=== PATIENT | male | born 1975 | race Caucasian/White ===

== ENCOUNTER 2020-06-11 18:39 | Emergency (ER) | payer BC ==
[2020-06-11] MEDS ORDERED: Acetaminophen/HYDROcodone 325-5 MG Tab PO ONE (18:52)
[2020-06-11] MEDS ORDERED: Acetaminophen/HYDROcodone 325-5 MG Tab ONE ×2 (19:00→19:06)
--- NOTE | 2020-06-11 19:02 | EDM.PDOC ---
ED HPI GENERAL MEDICAL PROBLEM - General Chief Complaint: Upper Extremity Injury/Pain Stated Complaint: left arm injury Time Seen by Provider: 06/11/20 18:40 Source of Information: Reports: Patient History Limitations: Reports: No Limitations - History of Present Illness INITIAL COMMENTS - FREE TEXT/NARRATIVE: patient shoveled snow yesterday, last night developed left elbow pain denies any injury. Increased to day with w\swelling. Pain with ROM. CMS +, shoulder unremarkable. No signs of infection, but swelling is present. - Related Data Allergies Allergy/AdvReac Type Severity Reaction Status Date / Time Penicillins Allergy Hives Verified 06/11/20 18:45 Social & Family History - Recreational Drug Use Recreational Drug Use: No Review of Systems - Review of Systems Review Of Systems: See Below Constitutional: Reports: No Symptoms Eyes: Reports: No Symptoms Ears: Reports: No Symptoms Nose: Reports: No Symptoms Mouth/Throat: Reports: No Symptoms Respiratory: Reports: No Symptoms Cardiovascular: Reports: No Symptoms GI/Abdominal: Reports: No Symptoms Genitourinary: Reports: No Symptoms Musculoskeletal: Reports: Arm Pain, Joint Swelling Skin: Denies: Erythema, Wound Neurological: Reports: No Symptoms Psychiatric: Reports: No Symptoms ED EXAM, GENERAL - Physical Exam Exam: See Below Exam Limited By: No Limitations General Appearance: Alert, Mild Distress Throat/Mouth: Normal Voice Head: Atraumatic Neck: Full Range of Motion Respiratory/Chest: No Respiratory Distress Cardiovascular: Normal Peripheral Pulses, Regular Rate, Rhythm, No JVD Peripheral Pulses: 3+: Radial (L), Radial (R) (Male) Exam: Deferred Rectal (Males) Exam: Deferred Back Exam: Full Range of Motion Extremities: Normal Inspection, Normal Capillary Refill, Joint Swelling, Arm Pain, Limited Range of Motion (left elbow) Neurological: Alert, Oriented, Normal Gait, No Motor/Sensory Deficits, Abnormal Reflexes Psychiatric: Normal Mood Skin Exam: Warm, Dry, Intact, Normal Color Lymphatic: No Adenopathy Course - Vital Signs Last Recorded V/S: Last Vital Signs Temp 98.7 F 06/11/20 18:50 Pulse 97 06/11/20 18:50 Resp 18 06/11/20 18:50 BP 153/89 H 06/11/20 18:50 Pulse Ox 97 06/11/20 18:50 Departure - Departure Time of Disposition: 19:13 Disposition: Home, Self-Care 01 Condition: Good Clinical Impression: Bursitis due to overuse - Discharge Information *PRESCRIPTION DRUG MONITORING PROGRAM REVIEWED*: Not Applicable *COPY OF PRESCRIPTION DRUG MONITORING REPORT IN PATIENT SHY: Not Applicable Instructions: Preventing Overuse Injuries, Adult Additional Instructions: Return to ED for any increased or new concerning symptoms. Ice 15-20 minutes every 3-4 hours i\until tomorrow night, then you may use heat as discussed. Ibuprofen 600 mg every 6 hours with food, [place] 1 tablet every 6 hours for severe pain. Gentle exercises. Follow up with your primary MD next week or sooner if needed. You may use the troy and sling as needed. Watch for signs of infection, low grade fever, redness, drainage. Sepsis Event Note (ED) - Evaluation Sepsis Screening Result: No Definite Risk - Focused Exam Vital Signs: Vital Signs Temp Pulse Resp BP Pulse Ox 06/11/20 18:50 98.7 F 97 18 153/89 H 97 06/11/20 18:48 98.2 F 99 18 153/89 H 98
[2020-06-11] MEDS ORDERED: Ibuprofen 600 MG Tab PO ONE (19:05)
[2020-06-11] MEDS ORDERED: Ibuprofen 600 MG Tab ONE (19:16)
== END 2020-06-11 19:18 | disposition home or self-care (01) ==
LOC: LB.ED 18:39
DX: M70.88 Other soft tissue disorders related to use, overuse and pressure other site (principal); Z88.0 Allergy status to penicillin
CPT/HCPCS: 99283; A9270

== ENCOUNTER 2020-07-21 20:28 | Emergency (ER) | payer BC ==
[2020-07-21] MEDS: HYDROmorphone 2 MG/ML SDV IVPUSH ONE (20:55)
[2020-07-21] MEDS: Ondansetron 4 MG/2 ML SDV IVPUSH ONE (20:56)
--- NOTE | 2020-07-22 00:17 | ER ---
HISTORY OF PRESENT ILLNESS: 44-year-old male here with complaints of ongoing issues with left elbow pain. He was seen a couple of months ago at this facility and was diagnosed with bursitis. He was given a sling and Voltaren to use. He states he used the Voltaren for a little while, the sling he did not use much. He has been continuing to work and the pain seems to be ongoing and getting a little worse. He is pointing to roughly the olecranon process area when describing area of discomfort. OBJECTIVE: GENERAL APPEARANCE: The patient is awake and alert. No obvious distress. MUSCULOSKELETAL: Examining the left elbow reveals skin is intact. There is no obvious swelling involving the olecranon process. Palpation reveals mild to moderate discomfort on the medial side of the elbow. The patient can flex and extend the elbow, but he cannot fully extend the elbow, telling me that this is fairly new. LAB AND X-RAY: X-rays were obtained of the elbow. It looks like there is an avulsion fracture on the medial side of the elbow. I do not see any other acute bony abnormalities. DIAGNOSIS: Elbow pain with a possible avulsion injury. TREATMENT PLAN: The patient is to resume using his sling. He is not to do any activity that he cannot do with a sling in place. He is to use ibuprofen alternating with Tylenol during the day and apply ice frequently for a couple of days. I do want the patient to recheck either late this week or early next week in the clinic for further evaluation which may include further imaging or an orthopedic referral may be needed. The patient has no further questions and agrees with the treatment plan. SALMA/FRANTZ /[id number]
--- NOTE | 2020-07-22 08:32 | CR ---
Date of Service: 07/21/20 Clinical Data: left elbow pain for 2 months. LEFT ELBOW: There is soft tissue ossification adjacent to the medial epicondyle of the distal humerus which may be related to prior trauma or repetitive stress. No acute fracture or dislocation. No lytic or blastic bone lesions. There does appear to be a subtle anterior fat pad sign consistent with small joint effusion. No other significant findings. [id number] [facility]
== END 2020-07-21 21:17 | disposition home or self-care (01) ==
LOC: LB.ED 20:28
DX: M25.522 Pain in left elbow (principal)
CPT/HCPCS: 73070-LT; 96374; 96375; 99283-25; J1170; J2405

== ENCOUNTER 2020-12-13 12:43 | Emergency (ER) | payer BC ==
--- NOTE | 2020-12-13 13:13 | EDM.PDOC ---
ED HPI GENERAL MEDICAL PROBLEM - General Chief Complaint: Lower Extremity Injury/Pain Stated Complaint: LEFT KNEE PAIN Time Seen by Provider: 12/13/20 13:15 Source of Information: Reports: Patient History Limitations: Reports: No Limitations - History of Present Illness INITIAL COMMENTS - FREE TEXT/NARRATIVE: patient presented to the ER with a c/o left knee pain started yesterday morning and has been gradually getting worse. No trauma or injury. Reports a h/o of ACL repair 2 years ago - since then, her has been doing well. Reports pain is 6 out of 10 while resting and jumps to 10 when he moves it. Unable to ambulate due to pain.. Has been using Aleve without relief of pain. Reports a h/o gout - used to be on allopurinol for 6 years- stopped taking it 2 yrs ago. Onset: Sudden Duration: Day(s): (2) Location: Reports: Lower Extremity, Left Quality: Reports: Sharp, Throbbing Severity: Severe Improves with: Reports: None Worsens with: Reports: Movement knee Pain Score (Numeric/FACES): 6 - Related Data Allergies Allergy/AdvReac Type Severity Reaction Status Date / Time Penicillins Allergy Hives Verified 12/13/20 12:54 Home Meds: Home Meds Escitalopram Oxalate [Lexapro] 10 mg PO DAILY 07/21/20 [History] Glimepiride 4 mg PO BIDMEALS 07/21/20 [History] Metoprolol Succinate 100 mg PO DAILY 07/21/20 [History] [place]-3/DHA/Epa/Fish Oil [Fish Oil 1,000 mg Softgel] 3 each PO DAILY 07/21/20 [History] Pioglitazone [Actos] 30 mg PO DAILY 07/21/20 [History] atorvaSTATin [Lipitor] 20 mg PO DAILY 07/21/20 [History] hydroCHLOROthiazide [Hydrochlorothiazide] 50 mg PO DAILY 07/21/20 [History] metFORMIN [Glucophage] 1,000 mg PO BIDMEALS 07/21/20 [History] Past Medical History Cardiovascular History: Reports: High Cholesterol, Hypertension Musculoskeletal History: Reports: Gout Endocrine/Metabolic History: Reports: Diabetes, Type II Social & Family History - Caffeine Use Caffeine Use: Reports: Soda Review of Systems - Review of Systems Review Of Systems: See Below Constitutional: Reports: No Symptoms Eyes: Reports: No Symptoms Respiratory: Reports: No Symptoms Cardiovascular: Reports: No Symptoms GI/Abdominal: Reports: No Symptoms Genitourinary: Reports: No Symptoms Skin: Reports: No Symptoms Neurological: Reports: No Symptoms ED EXAM, GENERAL - Physical Exam Exam: See Below Exam Limited By: No Limitations General Appearance: Alert, WD/WN, No Apparent Distress Eye Exam: Bilateral Eye: EOMI Head: Atraumatic Respiratory/Chest: No Respiratory Distress, Lungs Clear, Normal Breath Sounds Cardiovascular: Normal Peripheral Pulses, Regular Rate, Rhythm GI/Abdominal: Normal Bowel Sounds, Soft, Non-Tender Back Exam: Normal Inspection Extremities: Normal Inspection, Other (mild swelling left knee, crepitus on movement. Severe TTP and limited ROM due to pain. no redness. not hot/not warm) Neurological: Alert, Oriented, Normal Cognition Psychiatric: Normal Affect Course - Vital Signs Last Recorded V/S: Last Vital Signs Temp 36.7 C 12/13/20 13:00 Pulse 78 12/13/20 13:00 Resp 16 12/13/20 13:00 BP 121/84 12/13/20 14:08 Pulse Ox 100 12/13/20 13:00 - Orders/Labs/Meds Orders: Active Orders 24 hr Category Date Time Status Knee 3V Lt [CR] Stat Exams 12/13/20 13:31 Taken Labs: Laboratory Tests 12/13/20 12/13/20 12/13/20 Range/Units 13:50 13:50 13:50 WBC 12.3 H (4.0-11.0) K/uL RBC 4.69 (4.50-6.50) M/uL Hgb 13.2 (13.0-18.0) g/dL Hct 40.5 (40.0-54.0) % MCV 86 (76-96) fL MCH 28.1 (27.0-32.0) pg MCHC 32.6 (31.0-35.0) g/dL RDW 13.2 (11.0-16.0) % Plt Count 255 (150-400) K/uL MPV 10.9 H (6.0-10.0) fL Neut % (Auto) 66.6 (45.0-70.0) % Lymph % (Auto) 20.7 (20.0-40.0) % [place] % (Auto) 9.2 (3.0-10.0) % Eos % (Auto) 3.3 (1.0-5.0) % Baso % (Auto) 0.2 (0.0-0.5) % Neut # (Auto) 8.21 H (2.00-7.50) K/uL Lymph # (Auto) 2.55 (1.50-4.00) K/uL [place] # (Auto) 1.14 H (0.20-0.80) K/uL Eos # (Auto) 0.41 H (0.04-0.40) K/uL Baso # (Auto) 0.03 (0.02-0.10) K/uL ESR 24 H (0-15) mm/hr Sodium 140 (136-145) mmol/L Potassium 4.6 (3.5-5.1) mmol/L Chloride 101 (98-107) mmol/L Carbon Dioxide 28.8 (21.0-32.0) mmol/L Anion Gap 14.8 (5.0-15.0) mmol/L BUN 20 (8-26) mg/dL Creatinine 1.00 (0.70-1.30) mg/dL Est Cr Clr Drug Dosing 102.39 mL/min Estimated GFR (MDRD) > 60 (>60) MLS/MIN BUN/Creatinine Ratio 20.0 (6-25) Glucose 135 H (74-100) mg/dL Uric Acid 6.5 (2.6-7.2) mg/dL Calcium 9.0 (8.5-10.1) mg/dL C-Reactive Protein 0.5 (0.0-3.0) mg/L Meds: Medications Discontinued Medications Generic Name Dose Route Start Last Admin Trade Name Freq PRN Reason Stop Dose Admin Cephalexin 500 mg 12/13/20 15:37 Cephalexin 500 Mg Cap PO 12/13/20 15:38 ONETIME ONE Ketorolac Tromethamine 30 mg 12/13/20 13:30 12/13/20 13:54 Ketorolac 30 Mg/Ml Sdv IM 12/13/20 13:31 30 mg ONETIME ONE Administration Morphine Sulfate 5 mg 12/13/20 14:45 12/13/20 15:10 Morphine 10 Mg/Ml Syringe IM 12/13/20 14:46 5 mg ONETIME ONE Administration Morphine Sulfate Confirm 12/13/20 15:30 Morphine 10 Mg/Ml Sdv Administered 12/13/20 15:31 Dose 10 mg .ROUTE .STK-MED ONE - Re-Assessments/Exams Free Text/Narrative Re-Assessment/Exam: xrays knee - mild effusion, and e/o DJD. narrowing space and e/o previous surgery. labs - CBC w/diff, uric acid and ESR/CRP. Mild elevation in ESR and WBC. Normal CRP. Normal Uric acid. was given IM Toradol but no improvement , but better control after IM morphine given the h/o DM and mild elevation in WBC - decision to treat prophylactically with PO abs to prevent any chance of septic arthritis ( less likely but given h/o DM and previous surgery ). was d/cd home on PO abx, crutched and PO norco. f/u with PCP in 3 days for re-evaluation off work for 2 days Departure - Departure Time of Disposition: 15:42 Disposition: Home, Self-Care 01 Condition: Good Clinical Impression: Arthritis of knee, left Knee pain, left Qualifiers: Chronicity: acute Qualified Code(s): M25.562 - Pain in left knee - Discharge Information *PRESCRIPTION DRUG MONITORING PROGRAM REVIEWED*: Yes *COPY OF PRESCRIPTION DRUG MONITORING REPORT IN PATIENT SHY: Yes Instructions: Acute Knee Pain, Adult, Pain Medicine Instructions, [id number], Acute Knee Pain, Adult, [id number] Referrals: PCP,None [Primary Care Provider] - Forms: ED Department Discharge Sepsis Event Note (ED) - Evaluation Sepsis Screening Result: No Definite Risk - Focused Exam Vital Signs: Vital Signs Temp Pulse Resp BP Pulse Ox 12/13/20 14:08 121/84 12/13/20 13:00 36.7 C 78 16 140/98 H 100 - Problem List & Annotations (1) Arthritis of knee, left SNOMED Code(s): 599120734 Code(s): M17.12 - UNILATERAL PRIMARY OSTEOARTHRITIS, LEFT KNEE Status: Acute Priority: Medium Current Visit: Yes (2) Knee pain, left SNOMED Code(s): 4687704535 Code(s): M25.562 - PAIN IN LEFT KNEE Status: Acute Priority: Medium Current Visit: Yes Qualifiers: Chronicity: acute Qualified Code(s): M25.562 - Pain in left knee - Problem List Review Problem List Initiated/Reviewed/Updated: Yes - My Orders Last 24 Hours: My Active Orders 12/13/20 13:31 Knee 3V Lt [CR] Stat - Assessment/Plan Last 24 Hours: My Active Orders 12/13/20 13:31 Knee 3V Lt [CR] Stat Plan: - take pain medications and anti-biotics as prescribed - ice the affected area and use crutched when ambulating - follow up with PCP on Monday for check up - return to the ER if symptoms got worse or any concerns - off work for 2 days
[2020-12-13] MEDS: Ketorolac 30 MG/ML SDV IM ONE (13:54)
[2020-12-13] MEDS: Morphine 10 MG/ML Syringe IM ONE (15:10)
[2020-12-13] MEDS ORDERED: Morphine 10 MG/ML SDV ONE (15:30)
[2020-12-13] MEDS ORDERED: Cephalexin 500 MG Cap PO ONE (15:37)
[2020-12-13] MEDS ORDERED: Acetaminophen/HYDROcodone 325-5 MG Tab ONE (16:00)
[2020-12-13] MEDS ORDERED: Cephalexin 500 MG Cap ONE (16:00)
--- NOTE | 2020-12-14 07:34 | CR ---
Date of Service: 12/13/20 Clinical data: pain/swelling LEFT KNEE: No priors. The patient is status post ACL reconstruction. There are mild osteoarthritic changes. No acute abnormalities. There is a small joint effusion. [id number] MTDD
== END 2020-12-13 16:00 | disposition home or self-care (01) ==
LOC: LB.ED 12:43
DX: M17.12 Unilateral primary osteoarthritis, left knee (principal); E78.00 Pure hypercholesterolemia, unspecified; I10 Essential (primary) hypertension; E11.9 Type 2 diabetes mellitus without complications; Z79.84 Long term (current) use of oral hypoglycemic drugs; Z79.899 Other long term (current) drug therapy; Z88.0 Allergy status to penicillin
CPT/HCPCS: 36415; 73562-LT; 80048; 84550; 85025; 85651; 86140; 96372; 99283; 99283-25; A9270-GY; J1885; J2270

== ENCOUNTER 2020-12-20 06:10 | Emergency (ER) | payer BC ==
[2020-12-20] MEDS ORDERED: Ketorolac 60 MG/2 ML SDV IM ONE (06:56)
--- NOTE | 2020-12-20 07:11 | EDM.PDOC ---
ED HPI GENERAL MEDICAL PROBLEM - General Chief Complaint: Lower Extremity Injury/Pain Stated Complaint: LEFT KNEE PAIN Time Seen by Provider: 12/20/20 06:55 Source of Information: Reports: Patient History Limitations: Reports: No Limitations - History of Present Illness INITIAL COMMENTS - FREE TEXT/NARRATIVE: Patient presented to the ER with a c/o left knee pain. h/o ACL repair a couple years ago . Was seen for the same pain a week ago in the ER, was managed with crutches and given a prescription for pain management. He followed up with his PCP mid last week and had an MRI - that showed a partial tear of ACL with a small amount of effusion. Patient ran out of hydrocodone last night - and since then he has been on excruciating pain. He has a prescription from his PCP but the pharmacy is closed this weekend and cant refill it till tomorrow Onset: Gradual Duration: Week(s): (1) Location: Reports: Lower Extremity, Left Quality: Reports: Sharp, Throbbing Severity: Moderate Improves with: Reports: Immobilization, Medication Worsens with: Reports: Movement Left Knee Pain Score (Numeric/FACES): 9 - Related Data Allergies Allergy/AdvReac Type Severity Reaction Status Date / Time Penicillins Allergy Hives Verified 12/13/20 12:54 Home Meds: Home Meds Escitalopram Oxalate [Lexapro] 10 mg PO DAILY 07/21/20 [History] Glimepiride 4 mg PO BIDMEALS 07/21/20 [History] Metoprolol Succinate 100 mg PO DAILY 07/21/20 [History] [place]-3/DHA/Epa/Fish Oil [Fish Oil 1,000 mg Softgel] 3 each PO DAILY 07/21/20 [History] Pioglitazone [Actos] 30 mg PO DAILY 07/21/20 [History] atorvaSTATin [Lipitor] 20 mg PO DAILY 07/21/20 [History] hydroCHLOROthiazide [Hydrochlorothiazide] 50 mg PO DAILY 07/21/20 [History] metFORMIN [Glucophage] 1,000 mg PO BIDMEALS 07/21/20 [History] Acetaminophen/HYDROcodone [[place] 325-5 MG] 1 tab PO Q6H PRN 2 Days #10 tab 12/13/20 [Rx] cephALEXin [Keflex] 500 mg PO Q8H 7 Days #21 cap 12/13/20 [Rx] Hydrocodone/Acetaminophen [Vicodin Hp 10-300 mg Tablet] 1 tab PO Q4HR 12/20/20 [History] Losartan Potassium 100 mg PO DAILY 12/20/20 [History] Past Medical History HEENT History: Reports: None Cardiovascular History: Reports: High Cholesterol, Hypertension Respiratory History: Reports: None Gastrointestinal History: Reports: None Genitourinary History: Reports: None Musculoskeletal History: Reports: Gout Neurological History: Reports: None Psychiatric History: Reports: None Endocrine/Metabolic History: Reports: Diabetes, Type II Hematologic History: Reports: None Immunologic History: Reports: None Oncologic (Cancer) History: Reports: None Dermatologic History: Reports: None - Infectious Disease History Infectious Disease History: Reports: None - Past Surgical History Head Surgeries/Procedures: Reports: None HEENT Surgical History: Reports: None GI Surgical History: Reports: None Social & Family History - Caffeine Use Caffeine Use: Reports: Soda Review of Systems - Review of Systems Review Of Systems: See Below Eyes: Reports: No Symptoms Respiratory: Reports: No Symptoms Cardiovascular: Reports: No Symptoms GI/Abdominal: Reports: No Symptoms Skin: Reports: No Symptoms Neurological: Reports: No Symptoms ED EXAM, GENERAL - Physical Exam Exam: See Below Exam Limited By: No Limitations General Appearance: Alert, WD/WN, No Apparent Distress Eye Exam: Bilateral Eye: EOMI Respiratory/Chest: No Respiratory Distress, Lungs Clear Cardiovascular: Normal Peripheral Pulses Extremities: Normal Inspection, Limited Range of Motion (left knee due to pain, no swelling) Course - Vital Signs Last Recorded V/S: Last Vital Signs Temp 36.6 C 12/20/20 07:05 Pulse 92 12/20/20 07:05 Resp 20 12/20/20 07:05 BP 158/102 H 12/20/20 07:05 Pulse Ox 97 12/20/20 07:05 - Orders/Labs/Meds Meds: Medications Discontinued Medications Generic Name Dose Route Start Last Admin Trade Name Freq PRN Reason Stop Dose Admin Hydrocodone Bitart/Acetaminophen 1 tab 12/20/20 07:24 Acetaminophen/Hydrocodone 325-10 Mg Tab PO 12/20/20 07:25 ONETIME ONE Ketorolac Tromethamine 60 mg 12/20/20 06:56 Ketorolac 60 Mg/2 Ml Sdv IM 12/20/20 06:57 ONETIME ONE - Re-Assessments/Exams Free Text/Narrative Re-Assessment/Exam: 12/20/20 07:28 minimal relied with IM Toradol discussed the MRI results with the patient - partial teat of ACL graft recommended to use knee immobilizer for now and avoid putting weight on it Patient has a prescription of hydrocodone from his PCp that he will pick it up tomorrow, until then, will provide 10 tabs of tramadol and a knee immobilizer Departure - Departure Time of Disposition: 07:28 Disposition: Home, Self-Care 01 Condition: Good Clinical Impression: Knee pain, left Qualifiers: Chronicity: acute Qualified Code(s): M25.562 - Pain in left knee ACL graft tear Qualifiers: Encounter type: initial encounter Qualified Code(s): T84.89XA - Other specified complication of internal orthopedic prosthetic devices, implants and grafts, initial encounter - Discharge Information Instructions: How to Use a Knee Immobilizer, [id number] Referrals: PCP,None [Primary Care Provider] - Forms: ED Department Discharge Additional Instructions: - keep knee immobilizer on - take pain meds as prescribed - follow up with your PCP next week to discuss MRI results - continue to use crutches - avoid putting weight on your knee Sepsis Event Note (ED) - Focused Exam Vital Signs: Vital Signs Temp Temp Pulse Resp BP BP Pulse Ox 12/20/20 07:05 36.6 C 36.6 C 100 20 158/102 H 154/108 H 97 - Problem List & Annotations (1) Knee pain, left SNOMED Code(s): 7595634392 Code(s): M25.562 - PAIN IN LEFT KNEE Status: Acute Priority: Medium Current Visit: No Qualifiers: Chronicity: acute Qualified Code(s): M25.562 - Pain in left knee - Problem List Review Problem List Initiated/Reviewed/Updated: Yes - Assessment/Plan Plan: - keep knee immobilizer on - take pain meds as prescribed - follow up with your PCP next week to discuss MRI results - continue to use crutches - avoid putting weight on your knee
[2020-12-20] MEDS ORDERED: Acetaminophen/HYDROcodone 325-10 MG Tab PO ONE (07:24)
[2020-12-20] MEDS ORDERED: Acetaminophen/HYDROcodone 325-10 MG Tab ONE (07:53)
[2020-12-20] MEDS ORDERED: traMADol 50 MG Tab ONE (08:00)
== END 2020-12-20 08:10 | disposition home or self-care (01) ==
LOC: LB.ED 06:10
DX: M25.562 Pain in left knee (principal); E78.00 Pure hypercholesterolemia, unspecified; I10 Essential (primary) hypertension; M10.9 Gout, unspecified; E11.9 Type 2 diabetes mellitus without complications; Z79.84 Long term (current) use of oral hypoglycemic drugs; Z79.899 Other long term (current) drug therapy; Z88.0 Allergy status to penicillin
CPT/HCPCS: 96372; 99283; A9270; J1885

== ENCOUNTER 2021-01-19 11:20 | Emergency (ER) | payer BC ==
[2021-01-19] MEDS ORDERED: LORazepam 0.5 MG Tab PO ONE (11:49)
[2021-01-19] MEDS ORDERED: diphenhydrAMINE 25 MG Cap PO ONE (11:49)
[2021-01-19] MEDS ORDERED: Ondansetron 4 MG Tab.DIS PO ONE (11:50)
--- NOTE | 2021-01-19 11:50 | EDM.PDOC ---
ED HPI GENERAL MEDICAL PROBLEM - General Chief Complaint: General Stated Complaint: DIZZINES/NAUSEA/VOMITING Time Seen by Provider: 01/19/21 11:45 Source of Information: Reports: Patient History Limitations: Reports: No Limitations - History of Present Illness INITIAL COMMENTS - FREE TEXT/NARRATIVE: in the ER due to dizziness and nausea. Woke up this morning and was feeling the floor is spinning around him.. Nausea and emesis x1. No CP or palpitations. Worse when he turn his face sideways and improves when he close his eyes and stay still. family h/o vertigo. no weakness or numbness. Onset: Sudden Duration: Hour(s): (3) - Related Data Allergies Allergy/AdvReac Type Severity Reaction Status Date / Time Penicillins Allergy Hives Verified 01/19/21 13:10 Home Meds: Home Meds Escitalopram Oxalate [Lexapro] 10 mg PO DAILY 07/21/20 [History] Glimepiride 4 mg PO BIDMEALS 07/21/20 [History] Metoprolol Succinate 100 mg PO DAILY 07/21/20 [History] [place]-3/DHA/Epa/Fish Oil [Fish Oil 1,000 mg Softgel] 3 each PO DAILY 07/21/20 [History] Pioglitazone [Actos] 30 mg PO DAILY 07/21/20 [History] atorvaSTATin [Lipitor] 20 mg PO DAILY 07/21/20 [History] hydroCHLOROthiazide [Hydrochlorothiazide] 50 mg PO DAILY 07/21/20 [History] metFORMIN [Glucophage] 1,000 mg PO BIDMEALS 07/21/20 [History] Losartan Potassium 100 mg PO DAILY 12/20/20 [History] Meclizine HCl 25 mg PO BID #15 tablet 01/19/21 [Rx] diphenhydrAMINE HCL [Benadryl] 25 mg PO BID PRN #20 capsule 01/19/21 [Rx] Past Medical History HEENT History: Reports: None Cardiovascular History: Reports: High Cholesterol, Hypertension Respiratory History: Reports: None Gastrointestinal History: Reports: None Genitourinary History: Reports: None Musculoskeletal History: Reports: Gout, Other (See Below) Other Musculoskeletal History: hx knee pain has been to Dr. Ramirez, had MRI and has been on [place]. Ran out rates pain a 9 and this is second time in ER in last 10 days Neurological History: Reports: None Psychiatric History: Reports: None Endocrine/Metabolic History: Reports: Diabetes, Type II Hematologic History: Reports: None Immunologic History: Reports: None Oncologic (Cancer) History: Reports: None Dermatologic History: Reports: None - Infectious Disease History Infectious Disease History: Reports: None - Past Surgical History Head Surgeries/Procedures: Reports: None HEENT Surgical History: Reports: None GI Surgical History: Reports: None Social & Family History - Family History Family Medical History: No Pertinent Family History - Caffeine Use Caffeine Use: Reports: Soda ED ROS GENERAL - Review of Systems Review Of Systems: See Below Constitutional: Reports: No Symptoms HEENT: Reports: No Symptoms Respiratory: Reports: No Symptoms Cardiovascular: Reports: No Symptoms Musculoskeletal: Reports: No Symptoms Skin: Reports: No Symptoms Neurological: Reports: Dizziness Psychiatric: Reports: No Symptoms ED EXAM, DIZZINESS - Physical Exam Exam: See Below Exam Limited By: No Limitations General Appearance: Alert, WD/WN, No Apparent Distress Eye Exam: Bilateral Eye: EOMI Vertigo: worsens with head to L, worsens with head to R, reproducible, short duration Respiratory/Chest: No Respiratory Distress, Lungs Clear Cardiovascular: Regular Rate, Rhythm Neurological: Alert, Normal Mood/Affect, No Motor/Sensory Deficits, Oriented x 3 Extremities: Normal Inspection Psychiatric: Normal Affect, Normal Mood Course - Vital Signs Last Recorded V/S: Last Vital Signs Temp 36.0 C L 01/19/21 11:35 Pulse 100 01/19/21 11:35 Resp 16 01/19/21 11:35 BP 148/94 H 01/19/21 11:35 Pulse Ox 97 01/19/21 11:35 - Orders/Labs/Meds Labs: Laboratory Tests 01/19/21 Range/Units 12:05 Sodium 136 (136-145) mmol/L Potassium 5.3 H (3.5-5.1) mmol/L Chloride 99 (98-107) mmol/L Carbon Dioxide 28.8 (21.0-32.0) mmol/L Anion Gap 13.5 (5.0-15.0) mmol/L BUN 21 (8-26) mg/dL Creatinine 1.08 (0.70-1.30) mg/dL Est Cr Clr Drug Dosing TNP Estimated GFR (MDRD) > 60 (>60) MLS/MIN BUN/Creatinine Ratio 19.4 (6-25) Glucose 236 H D (74-100) mg/dL Calcium 9.1 (8.5-10.1) mg/dL Meds: Medications Discontinued Medications Generic Name Dose Route Start Last Admin Trade Name Teressa PRN Reason Stop Dose Admin Diphenhydramine HCl 25 mg 01/19/21 11:49 01/19/21 12:02 Diphenhydramine 25 Mg Cap PO 01/19/21 11:50 25 mg ONETIME ONE Administration Lorazepam 0.5 mg 01/19/21 11:49 01/19/21 12:02 Lorazepam 0.5 Mg Tab PO 01/19/21 11:50 0.5 mg ONETIME ONE Administration Meclizine HCl 25 mg 01/19/21 11:48 01/19/21 12:02 Meclizine 25 Mg Tab.Chew PO 01/19/21 11:49 25 mg NOW STA Administration Ondansetron HCl 4 mg 01/19/21 11:50 01/19/21 12:02 Ondansetron 4 Mg Tab.Dis PO 01/19/21 11:51 4 mg ONETIME ONE Administration - Re-Assessments/Exams Free Text/Narrative Re-Assessment/Exam: 01/19/21 12:32 EKG NSR labs - no acute findings, ex except for hyperglycemia and mild hyperkalemia. Was given meclizine, Benadryl and PO Ativan patient reported significant improvement in symptoms after treatment Departure - Departure Time of Disposition: 12:30 Disposition: Home, Self-Care 01 Condition: Good Clinical Impression: Vertigo - Discharge Information *PRESCRIPTION DRUG MONITORING PROGRAM REVIEWED*: Not Applicable *COPY OF PRESCRIPTION DRUG MONITORING REPORT IN PATIENT SHY: Not Applicable Prescriptions: diphenhydrAMINE HCL [Benadryl] 25 mg PO BID PRN #20 capsule PRN Reason: Dizziness Meclizine HCl 25 mg PO BID #15 tablet Instructions: Vertigo, [id number], How to Perform the Rachel Maneuver Referrals: PCP,None [Primary Care Provider] - Forms: ED Department Discharge Additional Instructions: - take prescribed medication to help with your symptoms - increase fluids intake - follow up with your PCP in 3-10 days or as needed - return to the ER if any concerns or worsening of symptoms Sepsis Event Note (ED) - Focused Exam Vital Signs: Vital Signs Temp Pulse Resp BP Pulse Ox 01/19/21 11:35 36.0 C L 100 16 148/94 H 97 - Problem List & Annotations (1) Vertigo SNOMED Code(s): 412193610 Code(s): R42 - DIZZINESS AND GIDDINESS Status: Acute Priority: Low - Problem List Review Problem List Initiated/Reviewed/Updated: Yes - Assessment/Plan Plan: - take prescribed medication to help with your symptoms - increase fluids intake - follow up with your PCP in 3-10 days or as needed - return to the ER if any concerns or worsening of symptoms
== END 2021-01-19 12:57 | disposition home or self-care (01) ==
LOC: LB.ED 11:20
DX: R42 Dizziness and giddiness (principal); E78.00 Pure hypercholesterolemia, unspecified; I10 Essential (primary) hypertension; E11.9 Type 2 diabetes mellitus without complications; Z79.899 Other long term (current) drug therapy
CPT/HCPCS: 36415; 80048; 93005; 99284; A9270

== ENCOUNTER 2021-02-25 14:16 | Emergency (ER) | payer BC ==
[2021-02-25] MEDS ORDERED: Ibuprofen 600 MG Tab PO ONE (14:49)
[2021-02-25] MEDS ORDERED: Acetaminophen 325 MG Tab PO ONE (14:49)
--- NOTE | 2021-02-25 15:02 | EDM.PDOC ---
ED HPI GENERAL MEDICAL PROBLEM - General Chief Complaint: Lower Extremity Injury/Pain Stated Complaint: FELL IN THE YARD INJURED LEFT KNEE Time Seen by Provider: 02/25/21 14:35 Source of Information: Reports: Patient History Limitations: Reports: No Limitations - History of Present Illness INITIAL COMMENTS - FREE TEXT/NARRATIVE: pt presents to the ER with left knee pain after a fall earlier today pt states increased pain of lateral knee. "I stepped into a hole, fell onto my left knee and hears a 'pop' when I went down." history of left knee injuries with ACL repair and meniscus repair previously with PT ongoing. left knee brace intact, pt states he wears this regularly. denies numbness or tingling distal to left knee or any other injuries. pt states ROM is intact but increased pain with flexion. takes tramadol and ibuprofen for chronic knee pain at home. Onset: Today - Related Data Allergies Allergy/AdvReac Type Severity Reaction Status Date / Time Penicillins Allergy Hives Verified 02/25/21 14:28 Home Meds: Home Meds Escitalopram Oxalate [Lexapro] 10 mg PO DAILY 07/21/20 [History] Glimepiride 4 mg PO BIDMEALS 07/21/20 [History] Metoprolol Succinate 100 mg PO DAILY 07/21/20 [History] [place]-3/DHA/Epa/Fish Oil [Fish Oil 1,000 mg Softgel] 3 each PO DAILY 07/21/20 [History] Pioglitazone [Actos] 30 mg PO DAILY 07/21/20 [History] atorvaSTATin [Lipitor] 20 mg PO DAILY 07/21/20 [History] hydroCHLOROthiazide [Hydrochlorothiazide] 50 mg PO DAILY 07/21/20 [History] metFORMIN [Glucophage] 1,000 mg PO BIDMEALS 07/21/20 [History] Losartan Potassium 100 mg PO DAILY 12/20/20 [History] Meclizine HCl 25 mg PO BID #15 tablet 01/19/21 [Rx] diphenhydrAMINE HCL [Benadryl] 25 mg PO BID PRN #20 capsule 01/19/21 [Rx] traMADol [Ultram] 50 mg PO Q6HR PRN 02/25/21 [History] Past Medical History HEENT History: Reports: None Cardiovascular History: Reports: High Cholesterol, Hypertension Respiratory History: Reports: None Gastrointestinal History: Reports: None Genitourinary History: Reports: None Musculoskeletal History: Reports: Gout, Other (See Below) Other Musculoskeletal History: hx knee pain Neurological History: Reports: None Psychiatric History: Reports: Anxiety, Depression Endocrine/Metabolic History: Reports: Diabetes, Type II Hematologic History: Reports: None Immunologic History: Reports: None Oncologic (Cancer) History: Reports: None Dermatologic History: Reports: None - Infectious Disease History Infectious Disease History: Reports: None - Past Surgical History Head Surgeries/Procedures: Reports: None HEENT Surgical History: Reports: None GI Surgical History: Reports: None Musculoskeletal Surgical History: Reports: Arthroscopic Knee, Other (See Below) Other Musculoskeletal Surgeries/Procedures:: Torn ACL and Miniscus in November 2020 Social & Family History - Family History Family Medical History: No Pertinent Family History - Caffeine Use Caffeine Use: Reports: None - Recreational Drug Use Recreational Drug Use: No Review of Systems - Review of Systems Review Of Systems: Comprehensive ROS is negative, except as noted in HPI. ED EXAM, GENERAL - Physical Exam Exam: See Below Exam Limited By: No Limitations General Appearance: Alert, WD/WN, No Apparent Distress Respiratory/Chest: No Respiratory Distress, Normal Breath Sounds Cardiovascular: Normal Peripheral Pulses, No Edema Peripheral Pulses: 2+: Posterior Tibial (L), Posterior Tibial (R) Extremities: Other (left knee pain, somewhat exacerbated by palpation of lateral knee, no lateral or medial instability with varus or valgus stress. negative posterior and anterior drawers sign, passive ROM intact, active ROM limited to pt discomfort/anxiety) Neurological: Alert, Oriented, Normal Cognition Skin Exam: Warm, Dry, Intact Course - Vital Signs Last Recorded V/S: Last Vital Signs Temp 97.7 F 02/25/21 14:28 Pulse 93 02/25/21 14:28 Resp 18 02/25/21 14:28 BP 124/84 02/25/21 14:28 Pulse Ox 98 02/25/21 14:28 - Orders/Labs/Meds Orders: Active Orders 24 hr Category Date Time Status Knee 3V Lt [CR] Stat Exams 02/25/21 14:49 Ordered Meds: Medications Discontinued Medications Generic Name Dose Route Start Last Admin Trade Name Freq PRN Reason Stop Dose Admin Acetaminophen 650 mg 02/25/21 14:49 Acetaminophen 325 Mg Tab PO 02/25/21 14:50 NOW ONE Acetaminophen Confirm 02/25/21 15:05 Acetaminophen 325 Mg Tab Administered 02/25/21 15:06 Dose 650 mg .ROUTE .STK-MED ONE Ibuprofen 600 mg 02/25/21 14:49 Ibuprofen 600 Mg Tab PO 02/25/21 14:50 ONETIME ONE Ibuprofen Confirm 02/25/21 15:05 Ibuprofen 600 Mg Tab Administered 02/25/21 15:06 Dose 600 mg .ROUTE .STK-MED ONE - Radiology Interpretation Free Text/Narrative:: 3vw xray left knee: no noted acute fracture, dislocation or bony abnormality. noted post surgical ACL clip. Departure - Departure Time of Disposition: 16:07 Disposition: Home, Self-Care 01 Condition: Fair Clinical Impression: Left knee sprain - Discharge Information *PRESCRIPTION DRUG MONITORING PROGRAM REVIEWED*: No *COPY OF PRESCRIPTION DRUG MONITORING REPORT IN PATIENT SHY: No Referrals: Chan Ramirez MD [Primary Care Provider] - Additional Instructions: tylenol 1000mg four times a day may be added to your regimen of ibuprofen 800mg four times a day. notify your knee surgeon of fall, reinjury and xray results. continue use of knee immobilizer, you may need crutches throughout the weekend for assistance but I don't think you should need them after. continue with scheduled therapy, ice and elevate knee when able. Sepsis Event Note (ED) - Evaluation Sepsis Screening Result: No Definite Risk - Focused Exam Vital Signs: Vital Signs Temp Pulse Resp BP Pulse Ox 02/25/21 14:28 97.7 F 93 18 124/84 98 - Problem List & Annotations (1) Left knee sprain SNOMED Code(s): 63364624 Code(s): S83.92XA - SPRAIN OF UNSPECIFIED SITE OF LEFT KNEE, INITIAL E NCOUNTER Status: Acute Current Visit: Yes Qualifiers: Encounter type: initial encounter - Problem List Review Problem List Initiated/Reviewed/Updated: Yes - My Orders Last 24 Hours: My Active Orders 02/25/21 14:49 Knee 3V Lt [CR] Stat - Assessment/Plan Last 24 Hours: My Active Orders 02/25/21 14:49 Knee 3V Lt [CR] Stat
[2021-02-25] MEDS ORDERED: Ibuprofen 600 MG Tab ONE ×2 (15:05→15:06)
[2021-02-25] MEDS ORDERED: Acetaminophen 325 MG Tab ONE ×2 (15:05→15:08)
--- NOTE | 2021-02-25 16:01 | CR ---
DATE OF SERVICE: 02/25/2021 CLINICAL DATA: Fall Left knee: No priors. The patient is status post ACL reconstruction. There are minimal osteoarthritic changes of the knee joint. No acute abnormalities. There is a small joint effusion. Thank you for allowing us to participate in the care of your patient. CHANTEL
== END 2021-02-25 16:16 | disposition home or self-care (01) ==
LOC: LB.ED 14:16
DX: S83.92XA Sprain of unspecified site of left knee, initial encounter (principal); E78.00 Pure hypercholesterolemia, unspecified; I10 Essential (primary) hypertension; M10.9 Gout, unspecified; E11.9 Type 2 diabetes mellitus without complications; Z88.0 Allergy status to penicillin; Z79.84 Long term (current) use of oral hypoglycemic drugs; Z79.899 Other long term (current) drug therapy; W18.30XA Fall on same level, unspecified, initial encounter; Y92.096 Garden or yard of other non-institutional residence as the place of occurrence of the external cause
CPT/HCPCS: 73562; 99283; A9270

== ENCOUNTER 2021-06-10 13:58 | Emergency (ER) | payer BC, MEDICAID ==
[2021-06-10] MEDS: Ketorolac 30 MG/ML SDV IM ONE (14:58)
--- NOTE | 2021-06-10 15:01 | EDM.PDOC ---
ED HPI GENERAL MEDICAL PROBLEM - General Chief Complaint: Upper Extremity Injury/Pain Stated Complaint: LEFT SHOULDER AND ARM IN PAIN Time Seen by Provider: 06/10/21 14:45 Source of Information: Reports: Patient History Limitations: Reports: No Limitations - History of Present Illness INITIAL COMMENTS - FREE TEXT/NARRATIVE: 45-year-old male presents to the ED complaining of left shoulder pain. Previous medical history: Similar episodes, issues with gout hallux, multiple issues with joints, father has history of heart, obese. Patient's left shoulder pain has been going on for approximately 1 day. Kimon acute in nature. Increases with movement. Nothing seems to be palliative. Describes the pain as sharp in intensity. Radiates down to his elbow. Severity is an 8/10 currently but has been a 10/10. Positive for limited range of motion, impact to ADLs. Negative for: Any trauma to the left shoulder, no recent issues with overuse/work. No chest pain, shortness of breath, syncope/presyncope, dizzy lightheaded, constipation/diarrhea, changes in urine frequency, smell, color, odor. Left Shoulder Pain Score (Numeric/FACES): 10 - Related Data Allergies Allergy/AdvReac Type Severity Reaction Status Date / Time Penicillins Allergy Hives Verified 06/10/21 15:51 Home Meds: Home Meds Escitalopram Oxalate [Lexapro] 10 mg PO DAILY 07/21/20 [History] Glimepiride 4 mg PO BIDMEALS 07/21/20 [History] Metoprolol Succinate 100 mg PO DAILY 07/21/20 [History] [place]-3/DHA/Epa/Fish Oil [Fish Oil 1,000 mg Softgel] 3 each PO DAILY 07/21/20 [History] Pioglitazone [Actos] 30 mg PO DAILY 07/21/20 [History] atorvaSTATin [Lipitor] 20 mg PO DAILY 07/21/20 [History] hydroCHLOROthiazide [Hydrochlorothiazide] 50 mg PO DAILY 07/21/20 [History] metFORMIN [Glucophage] 1,000 mg PO BIDMEALS 07/21/20 [History] Losartan Potassium 100 mg PO DAILY 12/20/20 [History] diphenhydrAMINE HCL [Benadryl] 25 mg PO BID PRN #20 capsule 01/19/21 [Rx] Meclizine HCl 25 mg PO BID PRN 06/10/21 [History] Past Medical History HEENT History: Reports: None Cardiovascular History: Reports: High Cholesterol, Hypertension Respiratory History: Reports: None Gastrointestinal History: Reports: None Genitourinary History: Reports: None Musculoskeletal History: Reports: Gout, Other (See Below) Other Musculoskeletal History: hx knee pain Neurological History: Reports: None Psychiatric History: Reports: Anxiety, Depression Endocrine/Metabolic History: Reports: Diabetes, Type II Hematologic History: Reports: None Immunologic History: Reports: None Oncologic (Cancer) History: Reports: None Dermatologic History: Reports: None - Infectious Disease History Infectious Disease History: Reports: None - Past Surgical History Head Surgeries/Procedures: Reports: None HEENT Surgical History: Reports: None GI Surgical History: Reports: None Musculoskeletal Surgical History: Reports: Arthroscopic Knee, Other (See Below) Other Musculoskeletal Surgeries/Procedures:: Torn ACL and Miniscus in November 2020 Social & Family History - Family History Family Medical History: No Pertinent Family History - Caffeine Use Caffeine Use: Reports: None Review of Systems - Review of Systems Review Of Systems: Comprehensive ROS is negative, except as noted in HPI. ED EXAM, GENERAL - Physical Exam Exam: See Below Free Text/Narrative:: Four 5-year-old male presents to the ED complaining of left shoulder pain. Patient is in moderate distress due to pain. Patient is alert and oriented x3, GCS 456. Speaking in full sentences Exam Limited By: No Limitations General Appearance: Alert, WD/WN, No Apparent Distress Ears: Normal External Exam, Hearing Grossly Normal Nose: Normal Inspection, No Blood Throat/Mouth: Normal Lips, Normal Voice, No Airway Compromise Head: Atraumatic, Normocephalic Neck: Other (Full range of motion, no increase in pain during range of motion test.) Extremities: Other (Decreased range of motion, CMS intact, no obvious deformity. Positive empty can test positive Guzman test positive Neer's test, lift off test.) Neurological: Alert, Oriented, Normal Cognition, Normal Gait, Normal Reflexes, No Motor/Sensory Deficits Psychiatric: Normal Affect, Normal Mood Skin Exam: Warm, Dry, Intact, Normal Color, No Rash, Other (Patient was pale and diaphoretic upon arrival which rapidly changed after giving him some pain relief) #1 Interpretation EKG Date: 06/10/21 (Normal sinus rhythm without ectopy, no ST elevation or depression noted this is not a STEMI) Rhythm: NSR Course - Vital Signs Last Recorded V/S: Last Vital Signs Temp 98.7 F 06/10/21 14:30 Pulse 98 06/10/21 14:30 Resp 20 06/10/21 14:30 BP 172/98 H 06/10/21 14:30 Pulse Ox 94 L 06/10/21 14:30 - Orders/Labs/Meds Orders: Active Orders 24 hr Category Date Time Status Shoulder Comp Lt [CR] Stat Exams 06/10/21 14:53 Ordered EKG 12 Lead [EK] Routine Ther 06/10/21 14:41 Ordered Labs: Laboratory Tests 06/10/21 06/10/21 Range/Units 14:53 14:53 WBC 11.8 H (4.0-11.0) K/uL RBC 4.82 (4.50-6.50) M/uL Hgb 13.2 (13.0-18.0) g/dL Hct 40.5 (40.0-54.0) % MCV 84 (76-96) fL MCH 27.4 (27.0-32.0) pg MCHC 32.6 (31.0-35.0) g/dL RDW 13.2 (11.0-16.0) % Plt Count 261 D (150-400) K/uL MPV 11.0 H (6.0-10.0) fL Neut % (Auto) 67.3 (45.0-70.0) % Lymph % (Auto) 20.1 (20.0-40.0) % Roberts % (Auto) 7.8 (3.0-10.0) % Eos % (Auto) 4.4 (1.0-5.0) % Baso % (Auto) 0.4 (0.0-0.5) % Neut # (Auto) 7.90 H (2.00-7.50) K/uL Lymph # (Auto) 2.36 (1.50-4.00) K/uL Roberts # (Auto) 0.92 H (0.20-0.80) K/uL Eos # (Auto) 0.52 H (0.04-0.40) K/uL Baso # (Auto) 0.05 (0.02-0.10) K/uL Troponin I < 0.017 (0.000-0.060) ng/mL Meds: Medications Discontinued Medications Generic Name Dose Route Start Last Admin Trade Name Teressa PRN Reason Stop Dose Admin Ketorolac Tromethamine 30 mg 06/10/21 14:54 06/10/21 14:58 Ketorolac 30 Mg/Ml Sdv IM 06/10/21 14:55 30 mg ONETIME ONE Administration Ketorolac Tromethamine Confirm 06/10/21 15:08 06/10/21 15:10 Ketorolac 30 Mg/Ml Sdv Administered 06/10/21 15:09 Not Given Dose 30 mg .ROUTE .STK-MED ONE Departure - Departure Time of Disposition: 16:00 Disposition: Home, Self-Care 01 Condition: Good Clinical Impression: Pinched nerve in shoulder - Discharge Information *PRESCRIPTION DRUG MONITORING PROGRAM REVIEWED*: No *COPY OF PRESCRIPTION DRUG MONITORING REPORT IN PATIENT SHY: No Referrals: Chan Ramirez MD [Primary Care Provider] - Forms: ED Department Discharge Sepsis Event Note (ED) - Focused Exam Vital Signs: Vital Signs Temp Pulse Resp BP Pulse Ox 06/10/21 14:30 98.7 F 98 20 172/98 H 94 L - My Orders Last 24 Hours: My Active Orders 06/10/21 14:41 EKG 12 Lead [EK] Routine 06/10/21 14:53 Shoulder Comp Lt [CR] Stat - Assessment/Plan Last 24 Hours: My Active Orders 06/10/21 14:41 EKG 12 Lead [EK] Routine 06/10/21 14:53 Shoulder Comp Lt [CR] Stat Assessment:: 45-year-old male present to the ED complaining of left shoulder pain. The following etiologies were considered during evaluation and examination of patient's pain. To include fracture, AC separation, dislocation, rotator cuff tear, osteoarthritis, impingement/subacromial bursitis, adhesive capsulitis, labral tear, referred pain from an intra-abdominal process, cervical nerve root irritation, or intrathoracic pathology. Patient signs and symptoms were most consistent with nerve impingement/subacromial bursitis or labral tear. Patient was educated on what processes were not occurring. That cardiac was ruled out through EKG and troponin being negative. Lack of abdominal symptoms. X-ray negative for acute fracture, misalignment, soft tissue swelling, AC joint proper spacing without pain upon palpation. Plan: ABC, history, exam, lab work to include troponin/CBC, EKG, shoulder x- rays, shared decision making regarding treatment modality, patient given ketorolac for pain IM, patient to follow-up with Dr. Ramirez for possible referral to orthopedics.
[2021-06-10] MEDS: Ketorolac 30 MG/ML SDV ONE (15:10)
--- NOTE | 2021-06-10 19:59 | CR ---
CLINICAL DATA: Left shoulder pain. LEFT SHOULDER, 10 JUNE 2021: No priors. Mild osteoarthritic change of the AC joint. There is a small osseous density adjacent to the glenoid which may be a small loose body. There is a subtle notch defect in the humeral head posterolaterally suggesting the possibility of a prior anterior glenohumeral dislocation with impaction injury of the humeral head. No acute abnormalities. No other significant findings. Job: [id number]
== END 2021-06-10 16:05 | disposition home or self-care (01) ==
LOC: LB.ED 13:58
DX: M25.512 Pain in left shoulder (principal); E78.00 Pure hypercholesterolemia, unspecified; I10 Essential (primary) hypertension; E11.9 Type 2 diabetes mellitus without complications; Z88.0 Allergy status to penicillin; Z79.84 Long term (current) use of oral hypoglycemic drugs; Z79.899 Other long term (current) drug therapy
CPT/HCPCS: 36415; 73030; 84484; 85025; 93005; 96372; 99284; J1885

== ENCOUNTER 2021-10-29 14:28 | Emergency (ER) | payer BC | END 2021-10-29 15:25 | disposition home or self-care (01) | LOC: LB.ED 14:28 | DX: M25.562 Pain in left knee (principal); E78.00 Pure hypercholesterolemia, unspecified; I10 Essential (primary) hypertension; E11.9 Type 2 diabetes mellitus without complications; M10.9 Gout, unspecified; Z88.0 Allergy status to penicillin; Z79.899 Other long term (current) drug therapy | CPT/HCPCS: 99281; 99283 ==

== ENCOUNTER 2021-11-25 23:56 | Emergency (ER) | payer BC ==
[2021-11-26] MEDS ORDERED: Furosemide 20 MG Tab ONE (01:16)
[2021-11-26] MEDS ORDERED: Furosemide 20 MG Tab PO ONE (01:26)
== END 2021-11-26 02:11 | disposition home or self-care (01) ==
LOC: LB.ED 23:56
DX: I11.9 Hypertensive heart disease without heart failure (principal); E78.00 Pure hypercholesterolemia, unspecified; E11.9 Type 2 diabetes mellitus without complications; M10.9 Gout, unspecified; Z72.0 Tobacco use; Z88.0 Allergy status to penicillin; Z88.8 Allergy status to other drugs, medicaments and biological substances; Z79.899 Other long term (current) drug therapy; Z79.84 Long term (current) use of oral hypoglycemic drugs
CPT/HCPCS: 36415; 80048; 84484; 85025; 93005; 93010; 99283; 99284-25; A9270-GY

== ENCOUNTER 2021-12-23 01:46 | Emergency (ER) | payer BC ==
[2021-12-23] MEDS ORDERED: HYDROmorphone 2 MG/ML SDV IM ONE (02:08)
[2021-12-23] MEDS ORDERED: Acetaminophen/HYDROcodone 325-5 MG Tab ONE (04:00)
== END 2021-12-23 04:43 | disposition home or self-care (01) ==
LOC: LB.ED 01:46
DX: S20.212A Contusion of left front wall of thorax, initial encounter (principal); E78.00 Pure hypercholesterolemia, unspecified; I10 Essential (primary) hypertension; E11.9 Type 2 diabetes mellitus without complications; M10.9 Gout, unspecified; Z88.0 Allergy status to penicillin; Z88.8 Allergy status to other drugs, medicaments and biological substances; Z79.899 Other long term (current) drug therapy; W01.0XXA Fall on same level from slipping, tripping and stumbling without subsequent striking against object, initial encounter; Y99.0 Civilian activity done for income or pay
CPT/HCPCS: 36415; 71250; 74176; 80053; 81001; 83690; 85025; 96372; 99283; A9270; J1170

== ENCOUNTER 2021-12-23 23:05 | Emergency (ER) | payer BC ==
[2021-12-23] MEDS: HYDROmorphone 2 MG/ML SDV IM ONE (23:47)
[2021-12-23] MEDS: Ketorolac 60 MG/2 ML SDV IM ONE (23:47)
[2021-12-24] MEDS ORDERED: Lidocaine 1% 5 ML VIAL ONE (01:55)
[2021-12-24] MEDS ORDERED: Bupivacaine 0.25% 10 ML SDV ONE (01:55)
== END 2021-12-24 00:40 | disposition home or self-care (01) ==
LOC: LB.ED 23:05
DX: R07.89 Other chest pain (principal); E78.00 Pure hypercholesterolemia, unspecified; I10 Essential (primary) hypertension; E11.9 Type 2 diabetes mellitus without complications; M10.9 Gout, unspecified; Z88.0 Allergy status to penicillin; Z88.8 Allergy status to other drugs, medicaments and biological substances; Z79.84 Long term (current) use of oral hypoglycemic drugs; Z79.899 Other long term (current) drug therapy
CPT/HCPCS: 71101; 96372; 99282; 99283; J1170; J1885; J3490

== ENCOUNTER 2022-03-12 03:56 | Emergency (ER) | payer BC, MEDICAID | END 2022-03-12 04:11 | disposition home or self-care (01) | LOC: LB.ED 03:56 | DX: S01.01XA Laceration without foreign body of scalp, initial encounter (principal); E78.00 Pure hypercholesterolemia, unspecified; I10 Essential (primary) hypertension; E11.9 Type 2 diabetes mellitus without complications; Z88.0 Allergy status to penicillin; Z88.8 Allergy status to other drugs, medicaments and biological substances; Z79.899 Other long term (current) drug therapy; Z79.84 Long term (current) use of oral hypoglycemic drugs; W22.09XA Striking against other stationary object, initial encounter | CPT/HCPCS: 99281; 99282 ==

== ENCOUNTER 2023-01-30 10:12 | Emergency (ER) | payer BC, MEDICAID ==
[2023-01-30] MEDS ORDERED: Sodium Chloride 0.9% 10 ML Syringe FLUSH PRN (10:34)
[2023-01-30 10:41] LABS: BASOPHILS ABSOLUTE AUTO 0.03 K/uL (0.02-0.10); BASOPHILS PERCENT AUTO 0.2 % (0.0-0.5); EOSINOPHILS ABSOLUTE AUTO 0.68 K/uL (0.04-0.40); HEMATOCRIT 43.3 % (40.0-54.0); HEMOGLOBIN 14.1 g/dL (13.0-18.0); LYMPHOCYTES ABSOLUTE AUTO 2.62 K/uL (1.50-4.00); LYMPHOCYTES PERCENT AUTO 19.4 % (20.0-40.0); MEAN CORPUSCULAR HEMOGLOBIN 25.8 pg (27.0-32.0); MEAN CORPUSCULAR HGB CONC 32.6 g/dL (31.0-35.0); MEAN CORPUSCULAR VOLUME 79 fL (76-96); MEAN PLATELET VOLUME 10.5 fL (6.0-10.0); MONOCYTES ABSOLUTE AUTO 1.39 K/uL (0.20-0.80); MONOCYTES PERCENT AUTO 10.3 % (3.0-10.0); NEUTROPHILS ABSOLUTE AUTO 8.81 K/uL (2.00-7.50); NEUTROPHILS PERCENT AUTO 65.1 % (45.0-70.0); PLATELET COUNT,PLT 272 K/uL (150-400); RED BLOOD CELL COUNT 5.47 M/uL (4.50-6.50); RED CELL DISTRIBUTION WIDTH 14.2 % (11.0-16.0); WHITE BLOOD CELL COUNT,WBC 13.5 K/uL (4.0-11.0)
[2023-01-30 11:01] LABS: APPEARANCE,URINE CLEAR (CLEAR); BILIRUBIN,URINE SMALL (NEGATIVE); COLOR,URINE YELLOW; GLUCOSE,URINE NEGATIVE (NEGATIVE); KETONES,URINE TRACE mg/dL (NEGATIVE); LEUKOCYTE ESTERASE,URINE NEGATIVE (NEGATIVE); NITRITE,URINE NEGATIVE (NEGATIVE); OCCULT BLOOD,URINE NEGATIVE (NEGATIVE); PROTEIN,URINE NEGATIVE (NEGATIVE); UROBILINOGEN,URINE 0.2 E.U./dL (0.2-1.0)
[2023-01-30 11:05] LABS: ALANINE AMINOTRANSFERASE,ALT 37 U/L (12-78); ALBUMIN 3.5 g/dL (3.4-5.0); ALKALINE PHOSPHATASE 80 U/L (46-116); ANION GAP 16.2 mmol/L (5.0-15.0); ASPARTATE AMNIOTRANSFERASE,AST 14 U/L (15-37); BILIRUBIN TOTAL 0.5 mg/dL (0.0-1.0); BLOOD UREA NITROGEN,BUN 17 mg/dL (8-26); CALCIUM 8.8 mg/dL (8.5-10.1); CARBON DIOXIDE,CO2 25.3 mmol/L (21.0-32.0); CHLORIDE,CL 98 mmol/L (98-107); CREATININE 1.13 mg/dL (0.70-1.30); ESTIMATED GFR 81 mL/min (>60); GLUCOSE RANDOM 202 mg/dL (74-100); POTASSIUM,K 3.5 mmol/L (3.5-5.1); PROTEIN TOTAL,TP 6.9 g/dL (6.4-8.2); SODIUM,NA 136 mmol/L (136-145)
[2023-01-30 11:07] LABS: MAGNESIUM 1.5 mg/dL (1.8-2.4); PHOSPHORUS 4.2 mg/dL (2.5-4.9); TROPONIN I HIGH SENSITIVITY 4.8 pg/ml (<=60.4)
[2023-01-30 11:17] LABS: RBC,URINE NOT SEEN /HPF; WBC,URINE 0-5 /HPF
[2023-01-30] MEDS ORDERED: Sodium Chloride 0.9% 1,000 ML IV SCH (11:30)
[2023-01-30] MEDS ORDERED: Morphine 4 MG/ML VIAL IVPUSH ONE (12:50)
[2023-01-30] MEDS ORDERED: Morphine 4 MG/ML VIAL ONE (13:17)
[2023-01-30] MEDS ORDERED: Sodium Chloride 0.9% 500 ML IV SCH (16:15)
== END 2023-01-30 16:53 | disposition home or self-care (01) ==
LOC: LB.ED 10:12
DX: D86.9 Sarcoidosis, unspecified (principal); M54.50 Low back pain, unspecified; E78.00 Pure hypercholesterolemia, unspecified; I10 Essential (primary) hypertension; E11.9 Type 2 diabetes mellitus without complications; Z79.84 Long term (current) use of oral hypoglycemic drugs; Z79.899 Other long term (current) drug therapy; Z88.0 Allergy status to penicillin; Z88.8 Allergy status to other drugs, medicaments and biological substances
CPT/HCPCS: 36415; 71250; 74176; 80053; 81001; 83735; 84100; 84484; 85025; 85379; 93005; 96361; 96365; 96375; 99285-25; A0425; A0429; J2270; J3475; J7030

== ENCOUNTER 2024-02-19 02:10 | Emergency (ER) | payer MEDICAID ==
[2024-02-19] MEDS ORDERED: Sodium Chloride 0.9% 10 ML Syringe FLUSH PRN (02:30)
[2024-02-19 02:40] LABS: HEMATOCRIT 45.2 % (40.0-54.0); HEMOGLOBIN 14.8 g/dL (13.0-18.0); MEAN CORPUSCULAR HEMOGLOBIN 27.3 pg (27.0-32.0); MEAN CORPUSCULAR HGB CONC 32.7 g/dL (31.0-35.0); MEAN PLATELET VOLUME 11.1 fL (6.0-10.0); RED BLOOD CELL COUNT 5.42 M/uL (4.50-6.50); RED CELL DISTRIBUTION WIDTH 13.2 % (11.0-16.0); WHITE BLOOD CELL COUNT,WBC 9.9 K/uL (4.0-11.0)
[2024-02-19 02:59] LABS: ALBUMIN 3.6 g/dL (3.4-5.0); ANION GAP 10.7 mmol/L (5.0-15.0); BILIRUBIN TOTAL 0.2 mg/dL (0.0-1.0); BUN/CREATININE RATIO 17.7 (6-25); CALCIUM 9.3 mg/dL (8.5-10.1); CARBON DIOXIDE,CO2 30.8 mmol/L (21.0-32.0); CREATININE 1.75 mg/dL (0.70-1.30); EST CRCL DRUG DOSING (CG) 56.66 mL/min; POTASSIUM,K 3.5 mmol/L (3.5-5.1); PROTEIN TOTAL,TP 7.3 g/dL (6.4-8.2); TROPONIN I HIGH SENSITIVITY 6.6 pg/ml (<=60.4)
[2024-02-19] MEDS: Sodium Chloride 0.9% 1,000 ML IV SCH (03:36)
[2024-02-19 07:59] LABS: APPEARANCE,URINE CLEAR (CLEAR); BILIRUBIN,URINE NEGATIVE (NEGATIVE); COLOR,URINE YELLOW; GLUCOSE,URINE NEGATIVE (NEGATIVE); KETONES,URINE NEGATIVE (NEGATIVE); LEUKOCYTE ESTERASE,URINE NEGATIVE (NEGATIVE); NITRITE,URINE NEGATIVE (NEGATIVE); OCCULT BLOOD,URINE NEGATIVE (NEGATIVE); PROTEIN,URINE NEGATIVE (NEGATIVE); UROBILINOGEN,URINE 0.2 E.U./dL (0.2-1.0)
== END 2024-02-19 05:50 | disposition home or self-care (01) ==
LOC: LB.ED 02:10
DX: G44.221 Chronic tension-type headache, intractable (principal); J45.909 Unspecified asthma, uncomplicated; I10 Essential (primary) hypertension; E11.9 Type 2 diabetes mellitus without complications; Z79.4 Long term (current) use of insulin; Z79.84 Long term (current) use of oral hypoglycemic drugs; Z88.0 Allergy status to penicillin; Z88.8 Allergy status to other drugs, medicaments and biological substances
CPT/HCPCS: 36415; 70450; 80053; 80307; 81003; 82947; 84484; 85027; 93005; 99284; J7030; 93010; 99283

== ENCOUNTER 2024-08-07 01:56 | Emergency (ER) | payer MEDICAID ==
[2024-08-07 12:03] LABS: HEMATOCRIT 44.4 % (40.0-54.0); HEMOGLOBIN 14.6 g/dL (13.0-18.0); MEAN CORPUSCULAR HEMOGLOBIN 28.4 pg (27.0-32.0); MEAN CORPUSCULAR HGB CONC 32.9 g/dL (31.0-35.0); RED BLOOD CELL COUNT 5.14 M/uL (4.50-6.50); WHITE BLOOD CELL COUNT,WBC 12.1 K/uL (4.0-11.0)
[2024-08-07 12:04] LABS: MEAN PLATELET VOLUME 11.2 fL (6.0-10.0); RED CELL DISTRIBUTION WIDTH 14.2 % (11.0-16.0); SODIUM,NA 143 mmol/L (136-145)
[2024-08-07 12:05] LABS: ALBUMIN 3.6 g/dL (3.4-5.0); BLOOD UREA NITROGEN,BUN 23 mg/dL (8-26); BUN/CREATININE RATIO 17.4 (6-25); CALCIUM 9.1 mg/dL (8.5-10.1); CARBON DIOXIDE,CO2 28.1 mmol/L (21.0-32.0); CHLORIDE,CL 104 mmol/L (98-107); CREATININE 1.32 mg/dL (0.70-1.30); ESTIMATED GFR 67 mL/min (>60); GLUCOSE RANDOM 152 mg/dL (74-100); POTASSIUM,K 4.1 mmol/L (3.5-5.1); PROTEIN TOTAL,TP 7.3 g/dL (6.4-8.2)
[2024-08-07 12:06] LABS: ALANINE AMINOTRANSFERASE,ALT 26 U/L (12-78); ALKALINE PHOSPHATASE 81 U/L (46-116); ASPARTATE AMNIOTRANSFERASE,AST 14 U/L (15-37); BILIRUBIN TOTAL 0.4 mg/dL (0.0-1.0); C-REACTIVE PROTEIN HIGH SENSI 5.67 mg/dL (0.00-3.00)
[2024-08-07 12:08] LABS: CORONAVIRUS COVID-19 NAA NEGATIVE (NEGATIVE); INFLUENZA A NAA NEGATIVE (NEGATIVE); INFLUENZA B NAA NEGATIVE (NEGATIVE); RESPIRATORY SYNCYTIAL VIR NAA NEGATIVE (NEGATIVE)
== END 2024-08-07 04:40 | disposition home or self-care (01) ==
LOC: LB.ED 01:56
DX: J01.80 Other acute sinusitis (principal); D86.9 Sarcoidosis, unspecified; I10 Essential (primary) hypertension; J45.909 Unspecified asthma, uncomplicated; E11.9 Type 2 diabetes mellitus without complications; Z88.0 Allergy status to penicillin; Z88.8 Allergy status to other drugs, medicaments and biological substances; Z79.51 Long term (current) use of inhaled steroids; Z79.4 Long term (current) use of insulin; Z79.899 Other long term (current) drug therapy
CPT/HCPCS: 0241U; 36415; 71046; 80053; 85027; 86141; 99283